=== PATIENT | male | born 1965 | race Caucasian/White ===

== ENCOUNTER 2023-02-28 15:05 | Outpatient (OUT) | payer OTHER, SELFPAY ==
[2023-02-28 16:05] LABS: Prostate Specific Antigen Dx 0.59 ng/mL (<=4.00)
== END 2023-02-28 15:06 | disposition home or self-care (01) ==
LOC: LAB 15:10
PROVIDERS: Visit Provider Physician Assistant
DX: Z12.5 Encounter for screening for malignant neoplasm of prostate (principal)
CPT/HCPCS: 36415; 84153